=== PATIENT | female | born 1965 | race African-American/Black ===

== ENCOUNTER 2017-09-17 07:24 | Emergency (ER) | payer MEDICAID ==
[~2017-09-17] VITALS: Ht 167.6 cm; Wt 95.0 kg
[2017-09-17 08:21] LABS: CLARITY URINE CLEAR (CLEAR); COLOR URINE YELLOW (YELLOW); GLUCOSE URINE NEGATIVE (NEGATIVE); KETONES URINE NEGATIVE (NEGATIVE); LEUKOCYTE ESTERASE URINE NEGATIVE (NEGATIVE); NITRITE URINE NEGATIVE (NEGATIVE); OCCULT BLOOD URINE NEGATIVE (NEGATIVE); PROTEIN URINE NEGATIVE (NEGATIVE); SPECIFIC GRAVITY URINE 1.014 (1.005-1.030); UROBILINOGEN URINE 0.2 E.U./dL (0.2-1.0)
[2017-09-17 08:32] VITALS: BP 151/102
[2017-09-17] MEDS ORDERED: KETOROLAC 60MG/2ML VIAL IM ONE (10:00)
[2017-09-17] MEDS ORDERED: DEXAMETHASONE 10 MG/ML VIAL IM ONE (10:00)
== END 2017-09-17 10:51 | disposition home or self-care (01) ==
LOC: ER 07:24
DX: M54.30 Sciatica, unspecified side (principal); M54.5 Low back pain; R35.0 Frequency of micturition; R39.16 Straining to void; F17.210 Nicotine dependence, cigarettes, uncomplicated; I11.0 Hypertensive heart disease with heart failure; Z90.710 Acquired absence of both cervix and uterus
CPT/HCPCS: 81003; 96372; 99284; J1100; J1885; Z7610